=== PATIENT | male | born 1945 | race Caucasian/White ===

== ENCOUNTER 2022-10-04 15:38 | Inpatient (IN) | payer MEDICARE ==
[2022-10-04] MEDS: Sodium Chloride 0.9% 10 ML Syringe FLUSH PRN (17:23)
[2022-10-04 17:39] LABS: HEMATOCRIT 46.5 % (40.0-54.0); HEMOGLOBIN 15.3 g/dL (14.0-18.0); MEAN CORPUSCULAR HEMOGLOBIN 29.1 pg (27.0-34.0); MEAN CORPUSCULAR HGB CONC 32.9 g/dL (33.0-35.0); MEAN CORPUSCULAR VOLUME 88.4 fL (80-100); PLATELET COUNT,PLT 172 10^3/uL (150-450); RED BLOOD CELL COUNT 5.26 10^6/uL (4.6-6.2); WHITE BLOOD CELL COUNT,WBC 21.6 10^3/uL (5.0-10.0)
[2022-10-04 18:00] LABS: ALANINE AMINOTRANSFERASE,ALT 46 U/L (16-63); ALBUMIN 3.2 g/dL (3.4-5.0); ALKALINE PHOSPHATASE 92 U/L (46-116); ANION GAP 16.1 mEq/L (7-13); ASPARTATE AMNIOTRANSFERASE,AST 78 U/L (15-37); BILIRUBIN TOTAL 1.2 mg/dL (0.2-1.0); BLOOD UREA NITROGEN,BUN 21 mg/dL (7-18); BUN/CREATININE RATIO 19.1 (No establ ref range); CALCIUM 8.4 mg/dL (8.5-10.1); CARBON DIOXIDE,CO2 26 mmol/L (21-32); CHLORIDE,CL 98 mmol/L (98-107); EST CRCL DRUG DOSING (CG) 48.14 mL/min; GLUCOSE RANDOM 136 mg/dL (70-99); POTASSIUM,K 5.1 mmol/L (3.5-5.1); PROTEIN TOTAL,TP 7.6 g/dL (6.4-8.2); SODIUM,NA 135 mmol/L (136-145)
[2022-10-04 18:03] LABS: A/G RATIO 0.73; ESTIMATED GFR 69 mL/min (>=60); LACTIC ACID 2.1 mmol/L (0.4-2.0)
[2022-10-04 18:05] LABS: B-TYPE NATRIURETIC PEPTIDE,BNP 48 pg/ml (0-100)
[2022-10-04 18:10] LABS: KETONES,BLOOD NEGATIVE
[2022-10-04 18:16] LABS: LYMPHOCYTES PERCENT AUTO 4.2 % (20.5-50.1); NEUTROPHILS PERCENT AUTO 89.5 % (42.2-75.2)
[2022-10-04 18:17] LABS: MONOCYTES PERCENT AUTO 6.3 % (2-8)
[2022-10-04 18:22] LABS: BAND PERCENT MAN 4 %; LYMPHOCYTES PERCENT MAN 4 % (20-50); MONOCYTES PERCENT MAN 8 % (2-8); SEG NEUTROPHILS PERCENT MAN 84 % (42-75)
[2022-10-04] MEDS ORDERED: Sodium Chloride 0.9% 1,000 ML IV ONE (18:28)
[2022-10-04] MEDS ORDERED: cefTRIAXone 2 GM Vial IVPUSH ONE (18:30)
[2022-10-04] MEDS ORDERED: Azithromycin 500 MG in Sodium Chloride 0.9% 250 ML IV ONE (18:31)
[2022-10-04 18:49] LABS: APPEARANCE,URINE CLEAR (CLEAR); BILIRUBIN,URINE NEGATIVE (NEGATIVE); COLOR,URINE YELLOW (YELLOW); GLUCOSE,URINE >=1000 (NEGATIVE); KETONES,URINE 15 (NEGATIVE); LEUKOCYTE ESTERASE,URINE NEGATIVE (NEGATIVE); NITRITE,URINE NEGATIVE (NEGATIVE); OCCULT BLOOD,URINE SMALL (NEGATIVE); PH,URINE 5.5 (5.0-9.0); PROTEIN,URINE 100 (NEGATIVE); UROBILINOGEN,URINE 0.2 mg/dL (0.2-1.0)
[2022-10-04 19:06] LABS: AMORPHOUS SEDIMENT,URINE FEW /HPF (NOT SEEN); BACTERIA,URINE FEW /HPF (0-FEW/HPF); EPITHELIAL CELLS,URINE FEW /HPF (NOT SEEN); MUCUS,URINE RARE /LPF (NOT SEEN); RBC,URINE 0-5 /HPF (0-5); WBC,URINE 0-5 /HPF (0-5/HPF)
[2022-10-04] MEDS ORDERED: Docusate Sodium 100 MG Cap PO PRN (19:38)
[2022-10-04] MEDS ORDERED: Acetaminophen 325 MG Tab PO PRN (19:38)
[2022-10-04] MEDS ORDERED: Ondansetron 4 MG Tab.DIS PO PRN (19:38)
[2022-10-04] MEDS ORDERED: REMDESIVIR 200 MG in Sodium Chloride 0.9% 250 ML IV ONE (19:47)
[2022-10-04] MEDS ORDERED: 50% Dextrose in Water 50 ML Syringe IVPUSH PRN (19:54)
[2022-10-04] MEDS ORDERED: Glucagon,Human Recombinant 1 MG Vial IM PRN (19:54)
[2022-10-04] MEDS ORDERED: methylPREDNISolone Sodium Succinate 40 MG/1 ML SDV IVPUSH SCH (20:00)
[2022-10-04] MEDS: methylPREDNISolone Sodium Succinate 125 MG/2 ML SDV IVPUSH SCH (21:45)
[2022-10-04] MEDS: Sodium Chloride 0.9% 1,000 ML IV SCH (21:45)
[2022-10-04] MEDS: Aspirin 81 MG Tab.EC PO SCH (21:45)
[2022-10-04] MEDS: Insulin Lispro 100 Units/ML 3 ML Vial SUBCUT SCH (21:55)
[2022-10-05] MEDS: Albuterol/Ipratropium 3.0-0.5 MG/3 ML Neb Soln NEB SCH ×4 (01:00→17:13)
[2022-10-05] MEDS: methylPREDNISolone Sodium Succinate 125 MG/2 ML SDV IVPUSH SCH ×3 (04:20→20:00)
[2022-10-05 06:43] LABS: HEMATOCRIT 42.7 % (40.0-54.0); LYMPHOCYTES PERCENT AUTO 2.5 % (20.5-50.1); MEAN CORPUSCULAR HEMOGLOBIN 29.2 pg (27.0-34.0); MEAN CORPUSCULAR HGB CONC 32.8 g/dL (33.0-35.0); MONOCYTES PERCENT AUTO 2.4 % (2-8); NEUTROPHILS PERCENT AUTO 95.1 % (42.2-75.2); PLATELET COUNT,PLT 152 10^3/uL (150-450)
[2022-10-05 07:13] LABS: ALBUMIN 2.6 g/dL (3.4-5.0); ANION GAP 17.5 mEq/L (7-13); BILIRUBIN DIRECT 0.3 mg/dL (0.0-0.2); BILIRUBIN TOTAL 0.7 mg/dL (0.2-1.0); BUN/CREATININE RATIO 20.4 (No establ ref range); CALCIUM 7.8 mg/dL (8.5-10.1); CREATININE 1.08 mg/dL (0.70-1.30); EST CRCL DRUG DOSING (CG) 49.04 mL/min; POTASSIUM,K 3.5 mmol/L (3.5-5.1); PROTEIN TOTAL,TP 6.5 g/dL (6.4-8.2)
[2022-10-05 07:15] LABS: A/G RATIO 0.67
[2022-10-05] MEDS: Insulin Lispro 100 Units/ML 3 ML Vial SUBCUT SCH ×4 (08:27→21:12)
[2022-10-05] MEDS: Metoprolol Tartrate 25 MG Tab PO SCH (08:29)
[2022-10-05] MEDS: Aspirin 81 MG Tab.EC PO SCH ×2 (08:29→21:07)
[2022-10-05] MEDS: Lisinopril 5 MG Tab PO SCH (08:29)
[2022-10-05] MEDS: traMADol 50 MG Tab PO SCH ×2 (08:30→21:07)
[2022-10-05] MEDS: Enoxaparin 40 MG/0.4 ML Syringe SUBCUT SCH (08:31)
[2022-10-05] MEDS: Sodium Chloride 0.9% 1,000 ML IV SCH (10:36)
[2022-10-05] MEDS: Acetaminophen/HYDROcodone 325-5 MG Tab PO PRN ×2 (12:18→16:36)
[2022-10-05] MEDS: cefTRIAXone 1 GM Vial IVPUSH SCH (16:36)
[2022-10-05] MEDS: Sodium Chloride 0.9% 10 ML Syringe FLUSH PRN (16:37)
[2022-10-05] MEDS: REMDESIVIR 100 MG in Sodium Chloride 0.9% 100 ML IV SCH (20:00)
[2022-10-05] MEDS: Azithromycin 500 MG in Sodium Chloride 0.9% 250 ML IV SCH (20:00)
[2022-10-06] MEDS: Sodium Chloride 0.9% 1,000 ML IV SCH ×2 (00:25→13:55)
[2022-10-06] MEDS: Albuterol/Ipratropium 3.0-0.5 MG/3 ML Neb Soln NEB SCH ×4 (00:36→17:01)
[2022-10-06] MEDS: Acetaminophen/HYDROcodone 325-5 MG Tab PO PRN (02:00)
[2022-10-06 07:05] LABS: HEMATOCRIT 42.1 % (40.0-54.0); HEMOGLOBIN 13.7 g/dL (14.0-18.0); LYMPHOCYTES PERCENT AUTO 3.3 % (20.5-50.1); MEAN CORPUSCULAR HGB CONC 32.5 g/dL (33.0-35.0); MONOCYTES PERCENT AUTO 2.7 % (2-8); PLATELET COUNT,PLT 141 10^3/uL (150-450); RED BLOOD CELL COUNT 4.73 10^6/uL (4.6-6.2); WHITE BLOOD CELL COUNT,WBC 23.5 10^3/uL (5.0-10.0)
[2022-10-06 07:11] LABS: ALBUMIN 2.3 g/dL (3.4-5.0); ANION GAP 14.3 mEq/L (7-13); BILIRUBIN DIRECT 0.2 mg/dL (0.0-0.2); BILIRUBIN TOTAL 0.5 mg/dL (0.2-1.0); BUN/CREATININE RATIO 27.8 (No establ ref range); CALCIUM 7.7 mg/dL (8.5-10.1); CREATININE 1.15 mg/dL (0.70-1.30); EST CRCL DRUG DOSING (CG) 46.05 mL/min; POTASSIUM,K 3.3 mmol/L (3.5-5.1); PROTEIN TOTAL,TP 6.1 g/dL (6.4-8.2)
[2022-10-06 07:17] LABS: A/G RATIO 0.61
[2022-10-06] MEDS: atorvaSTATin 20 MG Tab PO SCH (08:09)
[2022-10-06] MEDS: traMADol 50 MG Tab PO SCH (08:10)
[2022-10-06] MEDS: Aspirin 81 MG Tab.EC PO SCH ×2 (08:10→20:49)
[2022-10-06] MEDS: Metoprolol Tartrate 25 MG Tab PO SCH (08:11)
[2022-10-06] MEDS: Lisinopril 5 MG Tab PO SCH (08:11)
[2022-10-06] MEDS: methylPREDNISolone Sodium Succinate 125 MG/2 ML SDV IVPUSH SCH (08:12)
[2022-10-06] MEDS: Enoxaparin 40 MG/0.4 ML Syringe SUBCUT SCH ×2 (08:12→20:49)
[2022-10-06] MEDS: Insulin Lispro 100 Units/ML 3 ML Vial SUBCUT SCH ×3 (08:17→16:57)
[2022-10-06] MEDS ORDERED: Insulin Glarg,Human.Rec.Analog 100 Unit/ML SUBCUT SCH ×3 (09:00→21:00)
[2022-10-06] MEDS ORDERED: Potassium Chloride 10 MEQ Tab.ER PO ONE (11:00)
[2022-10-06] MEDS ORDERED: guaiFENesin 600 MG Tab.ER PO ONE (11:26)
[2022-10-06] MEDS ORDERED: oxyCODONE ER 20 MG TAB.ER PO ONE (11:31)
[2022-10-06] MEDS: DULOXETINE 20 MG PO SCH ×2 (12:18→12:19)
[2022-10-06] MEDS: cefTRIAXone 1 GM Vial IVPUSH SCH (16:58)
[2022-10-06] MEDS: Azithromycin 500 MG in Sodium Chloride 0.9% 250 ML IV SCH (20:46)
[2022-10-06] MEDS: guaiFENesin 600 MG Tab.ER PO SCH (20:49)
[2022-10-06] MEDS: Famotidine 20 MG Tab PO SCH (20:49)
[2022-10-06] MEDS: Dexamethasone 4 MG/ML SDV IVPUSH SCH (20:51)
[2022-10-06] MEDS ORDERED: oxyCODONE ER 10 MG TAB.ER PO SCH (21:00)
[2022-10-06] MEDS ORDERED: LORazepam 2 MG/ML SDV IVPUSH ONE (21:01)
[2022-10-06] MEDS ORDERED: Flumazenil 0.1 MG/ML 5 ML MDV IVPUSH PRN (21:01)
[2022-10-06] MEDS: REMDESIVIR 100 MG in Sodium Chloride 0.9% 100 ML IV SCH (22:21)
[2022-10-06] MEDS: Temazepam 15 MG Cap PO PRN (22:22)
[2022-10-07] MEDS: Albuterol/Ipratropium 3.0-0.5 MG/3 ML Neb Soln NEB SCH ×4 (01:58→13:13)
[2022-10-07] MEDS: Acetaminophen/HYDROcodone 325-5 MG Tab PO PRN (05:32)
[2022-10-07] MEDS: Sodium Chloride 0.9% 1,000 ML IV SCH ×2 (05:41→19:59)
[2022-10-07 06:56] LABS: BASOPHILS PERCENT AUTO 0.1 % (0.0-1.0); HEMATOCRIT 43.3 % (40.0-54.0); HEMOGLOBIN 13.9 g/dL (14.0-18.0); LYMPHOCYTES PERCENT AUTO 4.2 % (20.5-50.1); MEAN CORPUSCULAR HGB CONC 32.1 g/dL (33.0-35.0); MEAN CORPUSCULAR VOLUME 90.4 fL (80-100); MONOCYTES PERCENT AUTO 3.2 % (2-8); NEUTROPHILS PERCENT AUTO 92.5 % (42.2-75.2); PLATELET COUNT,PLT 149 10^3/uL (150-450); RED BLOOD CELL COUNT 4.79 10^6/uL (4.6-6.2); WHITE BLOOD CELL COUNT,WBC 19.7 10^3/uL (5.0-10.0)
[2022-10-07 07:25] LABS: MAGNESIUM 2.7 mg/dL (1.8-2.4)
[2022-10-07 07:28] LABS: ALBUMIN 2.4 g/dL (3.4-5.0); ANION GAP 18.8 mEq/L (7-13); BILIRUBIN DIRECT 0.1 mg/dL (0.0-0.2); BILIRUBIN TOTAL 0.6 mg/dL (0.2-1.0); CALCIUM 7.2 mg/dL (8.5-10.1); CREATININE 0.8 mg/dL (0.70-1.30); EST CRCL DRUG DOSING (CG) 66.2 mL/min; PROTEIN TOTAL,TP 5.5 g/dL (6.4-8.2)
[2022-10-07 07:29] LABS: C-REACTIVE PROTEIN 13.9 mg/dL (0.0-0.9)
[2022-10-07 07:42] LABS: A/G RATIO 0.77; BUN/CREATININE RATIO 41.3 (No establ ref range); POTASSIUM,K 4.8 mmol/L (3.5-5.1)
[2022-10-07] MEDS ORDERED: Insulin Glarg,Human.Rec.Analog 100 Unit/ML SUBCUT SCH (09:00)
[2022-10-07] MEDS: Insulin Lispro 100 Units/ML 3 ML Vial SUBCUT SCH ×3 (09:38→17:57)
[2022-10-07] MEDS: Enoxaparin 40 MG/0.4 ML Syringe SUBCUT SCH ×2 (09:43→21:05)
[2022-10-07] MEDS: atorvaSTATin 20 MG Tab PO SCH (09:48)
[2022-10-07] MEDS: Allopurinol 300 MG Tab PO SCH (09:48)
[2022-10-07] MEDS: Famotidine 20 MG Tab PO SCH ×2 (09:49→21:04)
[2022-10-07] MEDS: Aspirin 81 MG Tab.EC PO SCH ×2 (09:49→21:04)
[2022-10-07] MEDS: DULoxetine 30 MG Cap PO SCH (09:50)
[2022-10-07] MEDS: Metoprolol Tartrate 25 MG Tab PO SCH (09:51)
[2022-10-07] MEDS: Lisinopril 5 MG Tab PO SCH (09:52)
[2022-10-07] MEDS: Dexamethasone 4 MG/ML SDV IVPUSH SCH ×2 (09:52→21:05)
[2022-10-07] MEDS: guaiFENesin 600 MG Tab.ER PO SCH ×2 (10:38→21:04)
[2022-10-07] MEDS: Insulin Glarg,Human.Rec.Analog 100 Unit/ML SUBCUT SCH ×2 (10:45→21:13)
[2022-10-07] MEDS ORDERED: REMDESIVIR 100 MG in Sodium Chloride 0.9% 100 ML IV SCH (12:00)
[2022-10-07] MEDS ORDERED: Albuterol/Ipratropium 3.0-0.5 MG/3 ML Neb Soln NEB PRN (16:10)
[2022-10-07] MEDS ORDERED: Simethicone 80 MG Tab.Chew PO PRN (17:08)
[2022-10-07] MEDS: cefTRIAXone 1 GM Vial IVPUSH SCH (17:26)
[2022-10-07] MEDS: Saccharomyces Boulardii (Probiotic) 250 MG Cap PO SCH (21:04)
[2022-10-07] MEDS: Azithromycin 500 MG in Sodium Chloride 0.9% 250 ML IV SCH (21:05)
[2022-10-08] MEDS ORDERED: REMDESIVIR 100 MG in Sodium Chloride 0.9% 100 ML IV SCH (05:00)
[2022-10-08 07:41] LABS: BASOPHILS PERCENT AUTO 0.1 % (0.0-1.0); HEMATOCRIT 41.7 % (40.0-54.0); HEMOGLOBIN 13.6 g/dL (14.0-18.0); LYMPHOCYTES PERCENT AUTO 6.7 % (20.5-50.1); MEAN CORPUSCULAR HEMOGLOBIN 28.8 pg (27.0-34.0); MEAN CORPUSCULAR HGB CONC 32.6 g/dL (33.0-35.0); MEAN CORPUSCULAR VOLUME 88.3 fL (80-100); MONOCYTES PERCENT AUTO 5.5 % (2-8); NEUTROPHILS PERCENT AUTO 87.7 % (42.2-75.2); PLATELET COUNT,PLT 171 10^3/uL (150-450); RED BLOOD CELL COUNT 4.72 10^6/uL (4.6-6.2); WHITE BLOOD CELL COUNT,WBC 13.9 10^3/uL (5.0-10.0)
[2022-10-08 07:56] LABS: C-REACTIVE PROTEIN 6.5 mg/dL (0.0-0.9); MAGNESIUM 2.6 mg/dL (1.8-2.4)
[2022-10-08 08:01] LABS: ALBUMIN 2.3 g/dL (3.4-5.0); ANION GAP 12.6 mEq/L (7-13); BILIRUBIN DIRECT 0.2 mg/dL (0.0-0.2); BILIRUBIN TOTAL 0.7 mg/dL (0.2-1.0); BUN/CREATININE RATIO 31.6 (No establ ref range); CALCIUM 7.3 mg/dL (8.5-10.1); CREATININE 0.95 mg/dL (0.70-1.30); EST CRCL DRUG DOSING (CG) 55.75 mL/min; POTASSIUM,K 4.6 mmol/L (3.5-5.1); PROTEIN TOTAL,TP 5.8 g/dL (6.4-8.2)
[2022-10-08 08:07] LABS: A/G RATIO 0.66
[2022-10-08] MEDS: traMADol 50 MG Tab PO PRN ×2 (08:08→20:45)
[2022-10-08] MEDS: Saccharomyces Boulardii (Probiotic) 250 MG Cap PO SCH ×2 (08:10→20:45)
[2022-10-08] MEDS: atorvaSTATin 20 MG Tab PO SCH (08:10)
[2022-10-08] MEDS: Lisinopril 5 MG Tab PO SCH (08:11)
[2022-10-08] MEDS: Metoprolol Tartrate 25 MG Tab PO SCH (08:11)
[2022-10-08] MEDS: DULoxetine 30 MG Cap PO SCH (08:12)
[2022-10-08] MEDS: guaiFENesin 600 MG Tab.ER PO SCH ×2 (08:12→20:44)
[2022-10-08] MEDS: Famotidine 20 MG Tab PO SCH ×2 (08:12→20:45)
[2022-10-08] MEDS: Allopurinol 300 MG Tab PO SCH (08:13)
[2022-10-08] MEDS: Aspirin 81 MG Tab.EC PO SCH ×2 (08:13→20:45)
[2022-10-08] MEDS: Enoxaparin 40 MG/0.4 ML Syringe SUBCUT SCH ×2 (08:13→20:44)
[2022-10-08] MEDS: Dexamethasone 4 MG/ML SDV IVPUSH SCH ×2 (08:21→20:46)
[2022-10-08] MEDS: Insulin Lispro 100 Units/ML 3 ML Vial SUBCUT SCH ×3 (08:27→17:29)
[2022-10-08] MEDS: Insulin Glarg,Human.Rec.Analog 100 Unit/ML SUBCUT SCH ×2 (08:30→20:43)
[2022-10-08] MEDS: Sodium Chloride 0.9% 1,000 ML IV SCH (09:52)
[2022-10-08] MEDS: Acetaminophen/HYDROcodone 325-5 MG Tab PO PRN (09:54)
[2022-10-08] MEDS: cefTRIAXone 1 GM Vial IVPUSH SCH (17:30)
[2022-10-08] MEDS: Azithromycin 500 MG in Sodium Chloride 0.9% 250 ML IV SCH (20:43)
[2022-10-08] MEDS: Temazepam 15 MG Cap PO PRN (20:44)
[2022-10-08] MEDS: Sodium Chloride 0.9% 10 ML Syringe FLUSH PRN (21:10)
[2022-10-09] MEDS: DULoxetine 30 MG Cap PO SCH (06:36)
[2022-10-09] MEDS: traMADol 50 MG Tab PO PRN (06:37)
[2022-10-09] MEDS: Allopurinol 300 MG Tab PO SCH (06:37)
[2022-10-09] MEDS: Famotidine 20 MG Tab PO SCH (06:37)
[2022-10-09] MEDS: guaiFENesin 600 MG Tab.ER PO SCH (06:37)
[2022-10-09] MEDS: Lisinopril 5 MG Tab PO SCH (06:38)
[2022-10-09] MEDS: atorvaSTATin 20 MG Tab PO SCH (06:38)
[2022-10-09] MEDS: Saccharomyces Boulardii (Probiotic) 250 MG Cap PO SCH (06:39)
[2022-10-09] MEDS: Aspirin 81 MG Tab.EC PO SCH (06:39)
== END 2022-10-09 07:00 | disposition home or self-care (01) | DRG 871 ==
LOC: DL.ED 15:38 → DL.MS 18:57
PROVIDERS: ADMIT Internal Medicine; ATTEND Internal Medicine
PROC: XW033E5 Introduction of Remdesivir Anti-infective into Peripheral Vein, Percutaneous Approach, New Technology Group 5 (ICD-10-PCS; principal; 2022-10-04)
PROC: 3E03329 Introduction of Other Anti-infective into Peripheral Vein, Percutaneous Approach (ICD-10-PCS; 2022-10-04)
PROC: 3E0333Z Introduction of Anti-inflammatory into Peripheral Vein, Percutaneous Approach (ICD-10-PCS; 2022-10-06)
DX: A41.89 Other specified sepsis (principal); J12.82 Pneumonia due to coronavirus disease 2019; R29.6 Repeated falls; E11.9 Type 2 diabetes mellitus without complications; U07.1 COVID-19; Z68.42 Body mass index [BMI] 45.0-49.9, adult; I45.10 Unspecified right bundle-branch block; E78.00 Pure hypercholesterolemia, unspecified; E66.9 Obesity, unspecified; J44.0 Chronic obstructive pulmonary disease with (acute) lower respiratory infection; I10 Essential (primary) hypertension; E78.5 Hyperlipidemia, unspecified; E11.42 Type 2 diabetes mellitus with diabetic polyneuropathy; G89.29 Other chronic pain; E66.01 Morbid (severe) obesity due to excess calories; E11.65 Type 2 diabetes mellitus with hyperglycemia; E88.09 Other disorders of plasma-protein metabolism, not elsewhere classified; D69.6 Thrombocytopenia, unspecified; E87.6 Hypokalemia; I25.10 Atherosclerotic heart disease of native coronary artery without angina pectoris; M10.9 Gout, unspecified; Z79.82 Long term (current) use of aspirin; I25.2 Old myocardial infarction; Z79.899 Other long term (current) drug therapy; Z98.890 Other specified postprocedural states; Z95.5 Presence of coronary angioplasty implant and graft; Z79.4 Long term (current) use of insulin; Z88.8 Allergy status to other drugs, medicaments and biological substances; Z87.891 Personal history of nicotine dependence
CPT/HCPCS: 36415; 71045; 80053; 81001; 82009; 83605; 83880; 84145; 84484; 85025; 87040 ×2; 87804 ×2; 93005; 96365; 96375; 99285; J0456; J0696; J7030; J7050; U0002; 82248; 82947; 83735; 86140; 93010; 93971; 94640; 97161-GP; 97165-GO; 97530-GO; 97530-GP; 99232; 99238; 99283; A9270-GY; J0248; J1100; J1650; J1815-GY; J2060; J2930; J3490; J7620-GY